=== PATIENT | male | born 1940 | race Caucasian/White ===

== ENCOUNTER → 2016-09-02 | Outpatient (CLI) | payer OTHER ==
[~2016-09-02] MED LIST: ASCA500; ASPI81TA28 PO; CIPR-255 PO; GLC/500 PO; GLIP10TA10 PO; INSDGI SC; MAGN1CAP2 PO; MTHH1 PO; MULT-506 PO; NVLGI SC; OMEG10007 PO; VTMD1000 PO; ZINC1CAP; inhaler
== END | disposition home or self-care (01) ==
LOC: C.LABPBG 11:06
PROVIDERS: ATTEND Urology
DX: N39.0 Urinary tract infection, site not specified (principal); R31.29 Other microscopic hematuria; C61 Malignant neoplasm of prostate